=== PATIENT | female | born 1950 | race Caucasian/White ===

== ENCOUNTER → 2020-05-07 12:50 | Outpatient (BNVA) | payer OTHER, SELFPAY | PROVIDERS: PCP Physician Assistant; Referring Provider Physician Assistant; Visit Provider Physician Assistant | DX: Z76.89 Persons encountering health services in other specified circumstances (principal) ==

== ENCOUNTER → 2020-05-21 08:06 | Outpatient (BNVA) | payer OTHER, SELFPAY | PROVIDERS: Visit Provider Physician Assistant | DX: Z76.89 Persons encountering health services in other specified circumstances (principal) ==

== ENCOUNTER 2020-05-29 09:57 | Outpatient (REF) | payer OTHER, SELFPAY ==
--- NOTE | 2020-05-29 10:20 | XR_ITS ---
EXAMINATION: XR CHEST CLINICAL INFORMATION: Preprocedure examination COMPARISON: None TECHNIQUE: 2 views of the chest were obtained. FINDINGS: No significant abnormality is noted involving the heart, lungs, mediastinum, bony thorax or soft tissues. XR/XR chest 2V IMPRESSION: No acute disease.
[2020-05-29 10:24] LABS: MANUAL DIFF FLAG NO
[2020-05-29 10:37] LABS: Basophils Absolute Auto 0.1 X10*3/uL (0.0-0.2); Eosinophils Absolute Auto 0.3 X10*3/uL (0.0-0.4); Eosinophils Percent Auto 3.3 % (0-4); Estimated Average Glucose 111 mg/dL; Hematocrit 44.4 % (37-47); Hemoglobin 14.7 g/dl (12.0-16.0); Hemoglobin A1C 135.4402 umol/L; Hemoglobin A1c % 5.5 %; Imm Gran Abs Auto 0.03 X10*3/uL (0.00-0.03); Imm Gran Pct Auto 0.3 % (0.0-0.4); Lymphocytes Absolute Auto 1.9 X10*3/uL (1.2-4.9); Lymphocytes Percent Auto 20.9 % (20-40); Mean Corpuscular HGB Conc 33.1 g/dl (31.0-35.0); Mean Corpuscular Hemoglobin 28.1 pg (27.0-33.0); Mean Corpuscular Volume 84.9 fL (80-98); Mean Platelet Volume 10.1 fL (9.4-12.3); Monocytes Absolute Auto 0.6 X10*3/uL (0.1-1.2); Monocytes Percent Auto 6.6 % (2-11); Neutrophils Percent Auto 67.9 % (45-73); Platelet Count 319 X10*3/uL (160-400); Red Blood Count 5.23 X10*6/uL (4.20-5.50); Red Cell Distribution Width 13.1 % (11.0-16.0); White Blood Count 8.9 X10*3/uL (4.8-10.8)
[2020-05-29 10:50] LABS: Alanine Aminotransferase 27 U/L (0-31); Albumin Level 4.3 g/dL (3.5-5.0); Alkaline Phosphatase 69 U/L (39-117); Anion Gap 15 (12-20); Aspartate Amino Transferase 26 U/L (5-31); Bilirubin Total 0.6 mg/dL (0.0-1.0); Blood Urea Nitrogen 26 mg/dL (9-16); C Reactive Protein 0.44 mg/dL (< or = 0.50); Calcium 9.3 mg/dL (8.4-10.2); Carbon Dioxide 26 mmol/L (22-29); Chloride 105 mmol/L (96-108); Cholesterol 127 mg/dL; Estimated Glomerular Filt Rate > 60; Glucose Random 103 mg/dL (60-115); HDL Cholesterol 42 mg/dL; LDL Cholesterol Calculated 62 mg/dl; Potassium 4.2 mmol/l (3.3-5.1); Sodium 142 mmol/L (135-145); Total Protein 6.7 g/dL (6.5-8.0); Triglycerides 117 mg/dL
[2020-05-29 11:14] LABS: Ferritin 87 ng/mL (10-250); TSH reflex Free T4 1.54 mIU/mL (0.32-4.0)
[2020-05-29 11:45] LABS: Vitamin D 25-OH Total 54.8 ng/mL (>30)
[2020-05-31 04:31] LABS: Folate > 20.0 ng/mL (> or = 4.0); Vitamin B12 866 pg/mL (200-900)
[2020-05-31 20:09] LABS: Insulin Level Total 22.5 uIU/mL
[2020-06-01 05:53] LABS: Zinc 153 mcg/dL (60-130)
[2020-06-01 12:08] LABS: Calcium (PTHI) 9.5 mg/dL (8.6-10.4); PTHI 45 pg/mL (14-64)
[2020-06-03 01:52] LABS: Vitamin A 45 mcg/dL (38-98)
[2020-06-03 06:27] LABS: Vitamin B1 39 nmol/L (8-30)
== END 2020-05-29 09:58 | disposition home or self-care (01) ==
LOC: HO.LAB 09:57
PROVIDERS: PCP Nurse Practitioner Adult Health; Visit Provider Physician Assistant
DX: E66.01 Morbid (severe) obesity due to excess calories (principal); Z01.818 Encounter for other preprocedural examination
CPT/HCPCS: 36415; 71046; 80053; 80061; 82306; 82607; 82728; 82746; 83036; 83525; 83970; 84425; 84443; 84590; 84630; 85025; 86140

== ENCOUNTER 2020-06-11 14:55 | Outpatient (REF) | payer OTHER, SELFPAY ==
[2020-06-14 09:13] LABS: H Pylori Breath Test NOT DETECTED (NOT DETECTED)
== END 2020-06-11 14:56 | disposition home or self-care (01) ==
LOC: HO.LNP 14:55
PROVIDERS: Visit Provider Physician Assistant
DX: Z11.0 Encounter for screening for intestinal infectious diseases (principal); E66.01 Morbid (severe) obesity due to excess calories
CPT/HCPCS: 83013

== ENCOUNTER → 2020-06-23 08:19 | Outpatient (BNVA) | payer OTHER, SELFPAY | PROVIDERS: Visit Provider Dietitian, Registered | DX: Z76.89 Persons encountering health services in other specified circumstances (principal) ==

== ENCOUNTER → 2020-07-09 08:35 | Outpatient (BNVA) | payer OTHER, SELFPAY | PROVIDERS: Visit Provider Physician Assistant | DX: Z76.89 Persons encountering health services in other specified circumstances (principal) ==

== ENCOUNTER → 2020-07-23 08:53 | Outpatient (BNVA) | payer OTHER, SELFPAY | PROVIDERS: Visit Provider Physician Assistant ==

== ENCOUNTER → 2020-08-13 08:38 | Outpatient (BNVA) | payer OTHER, SELFPAY | PROVIDERS: Visit Provider Physician Assistant ==

== ENCOUNTER → 2020-08-18 08:09 | Outpatient (BNVA) | payer OTHER, SELFPAY | PROVIDERS: Visit Provider Dietitian, Registered ==

== ENCOUNTER → 2020-09-03 08:56 | Outpatient (BNVA) | payer OTHER, SELFPAY | PROVIDERS: Visit Provider Dietitian, Registered ==

== ENCOUNTER → 2020-09-06 13:34 | Outpatient (BNVA) | payer OTHER, SELFPAY | PROVIDERS: Visit Provider Surgery ==

== ENCOUNTER → 2020-09-08 09:52 | Outpatient (BNVA) | payer OTHER, SELFPAY | PROVIDERS: PCP Nurse Practitioner Adult Health; Visit Provider Surgery ==

== ENCOUNTER → 2020-09-16 15:56 | Outpatient (BNVA) | payer OTHER, SELFPAY | PROVIDERS: PCP Nurse Practitioner Adult Health; Visit Provider Physician Assistant ==

== ENCOUNTER 2020-09-21 09:26 | Outpatient (REF) | payer OTHER, SELFPAY ==
--- NOTE | ~2020-09-21 | FL_ITS ---
EXAMINATION: XR GI SERIES CLINICAL INFORMATION: Morbid/severe obesity due to excess calories. COMPARISON: None. TECHNIQUE: Routine upper GI air-contrast study was performed. FINDINGS: Following oral administration of thick barium and effervescent granules, there is normal propagation of bolus from the oral cavity through the pharynx and esophagus and into the stomach without any evidence of obstruction, narrowing or stricture. On placing patient supine and prone lying, the course, caliber and peristalsis of the stomach are normal. There is moderate gastroesophageal reflux. The mucosal pattern of the esophagus, stomach and the duodenum is normal. FLUOROSCOPY TIME: 2.0 minutes. DOSE AREA PRODUCT: 60.60 uGy-m2 (microgray-meter squared). FL/FL upper GI series IMPRESSION: Moderate gastroesophageal reflux without hiatal hernia.
--- NOTE | ~2020-09-21 | US_ITS ---
EXAMINATION: US COMPLETE ABDOMEN WITH LIVER ELASTOGRAPHY CLINICAL INFORMATION: Bariatric service evaluation, E66.01 COMPARISON: None. TECHNIQUE: Real-time imaging of the abdominal viscera. Noninvasive ultrasound liver fibrosis assessment is performed using Jolene ElastPQ point quantification shear wave elastography (pSWE) with a C5-2 MHz transducer. Multiple elastography samples are obtained. FINDINGS: PANCREAS: The visualized pancreas is normal in size and contour and echogenicity. Portion pancreatic tail obscured by bowel gas and not completely imaged. There is no ductal dilatation. ABDOMINAL AORTA: The proximal, middle, and distal aortic segments are normal in caliber. INFERIOR VENA CAVA: Visualized portions are normal. LIVER: The liver is normal in size and smooth in contour. There is mild increased hepatic parenchymal echogenicity suggesting mild hepatic steatosis. There is no focal hepatic parenchymal lesion or intrahepatic ductal dilatation. The right lobe measures 15.9 cm in length. The left lobe measures 14.1 cm in length. Portal flow is towards the liver (hepatopetal). Shear wave liver elastography median stiffness is 1.58 m/s (reference: normal median stiffness is 1.3 m/s or less). IQR/median stiffness to assess sampling precision is 0.41 (reference: good quality data set is IQR/median stiffness of 0.15 or less). GALLBLADDER: Normal. The gallbladder is physiologically distended without evidence of stones, sludge, polyps, wall thickening or pericholecystic fluid. COMMON BILE DUCT: Normal in caliber measuring 0.4 cm in diameter. RIGHT KIDNEY: Normal. No hydronephrosis. No renal calculi or focal parenchymal lesions. The kidney measures 11.7 cm in maximum dimension. LEFT KIDNEY: Normal. No hydronephrosis. No renal calculi or focal parenchymal lesions. The kidney measures 11.4 cm in maximum dimension. SPLEEN: Normal. The spleen measures 10.4 cm in maximum dimension. FREE FLUID: None. US/US abdomen comp w elastography IMPRESSION: 1. Mild hepatic steatosis. No focal parenchymal lesion. 2. No gallstone or ductal dilatation. 3. Liver elastography: Although measurements appear to rule out compensated advanced chronic liver disease, there is statistical variability of the sampling which decreases accuracy. REFERENCE: Society of Radiologists in Ultrasound Liver Stiffness Thresholds (2020): LIVER STIFFNESS THRESHOLDS: *Liver Stiffness equal or less than 1.3 m/s: High probability of being normal. *Liver Stiffness less than 1.7 m/s: In the absence of other known clinical signs, rules out compensated advanced chronic liver disease. *Liver Stiffness 1.7-2.1 m/s: Suggestive of compensated advanced chronic liver disease but need further test for confirmation. *Liver Stiffness over 2.1 m/s: Rules in compensated advanced chronic liver disease. *Liver Stiffness over 2.4 m/s: Suggestive of clinically significant portal hypertension. QUALITY OF DATA SET: *IQR/Median value equal or less than 0.15 implies a quality data set. *IQR/Median value over 0.15 implies a poor quality data set. SIGNIFICANT CHANGE FROM PRIOR EXAM: Significant change if liver stiffness measurement is 10% or greater from prior exam. OTHER CONSIDERATIONS: The stage of liver fibrosis may be overestimated in the setting of acute hepatitis, liver inflammation, elevated liver function tests, hepatic vascular congestion, obstructive cholestasis, non-fasting state, and infiltrative diseases such as amyloidosis and lymphoma. In some patients with NAFLD, the liver stiffness thresholds for compensated advanced chronic liver disease may be lower. In causes other than viral hepatitis and NAFLD, liver stiffness thresholds are not well established.
--- NOTE | 2020-09-21 10:55 | ECG_ITS ---
Test Reason : MORBID OBESITY Blood Pressure : / mmHG Vent. Rate : 093 BPM Atrial Rate : 093 BPM P-R Int : 166 ms QRS Dur : 060 ms QT Int : 336 ms P-R-T Axes : 034 -34 011 degrees QTc Int : 417 ms Normal sinus rhythm Left axis deviation Low voltage QRS cannot exclude old Inferior infarct , age undetermined - can be normal variant Abnormal ECG No previous ECGs available Referred By: Ken Leon Electronically Signed By:ANITA BRITT
== END 2020-09-21 09:27 | disposition home or self-care (01) ==
LOC: HO.US 09:26
PROVIDERS: PCP Nurse Practitioner Adult Health; Visit Provider Surgery
DX: Z01.818 Encounter for other preprocedural examination (principal); E66.01 Morbid (severe) obesity due to excess calories; K21.9 Gastro-esophageal reflux disease without esophagitis; E78.5 Hyperlipidemia, unspecified; G47.30 Sleep apnea, unspecified
CPT/HCPCS: 74240; 76705; 76981; 93005

== ENCOUNTER → 2020-10-01 15:59 | Outpatient (BNVA) | payer OTHER, SELFPAY | PROVIDERS: PCP Nurse Practitioner Adult Health; Visit Provider Physician Assistant ==

== ENCOUNTER → 2020-10-04 08:11 | Outpatient (BNVA) | payer OTHER, SELFPAY | PROVIDERS: PCP Nurse Practitioner Adult Health; Visit Provider Surgery ==

== ENCOUNTER → 2020-10-20 08:38 | Outpatient (BNVA) | payer OTHER, SELFPAY | PROVIDERS: PCP Nurse Practitioner Adult Health; Visit Provider Surgery ==

== ENCOUNTER → 2020-10-22 13:26 | Outpatient (BNVA) | payer OTHER, MEDICARE, SELFPAY | PROVIDERS: PCP Nurse Practitioner Adult Health; Visit Provider Physician Assistant ==

== ENCOUNTER 2020-10-28 07:05 | Inpatient (IN) | payer OTHER, MEDICARE, SELFPAY ==
[2020-10-22 10:54] LABS: MANUAL DIFF FLAG NO
[2020-10-22 10:56] LABS: Basophils Absolute Auto 0.1 X10*3/uL (0.0-0.2); Basophils Percent Auto 0.7 % (0-2); Eosinophils Absolute Auto 0.3 X10*3/uL (0.0-0.4); Eosinophils Percent Auto 3.1 % (0-4); Hematocrit 45.2 % (37-47); Imm Gran Abs Auto 0.03 X10*3/uL (0.00-0.03); Imm Gran Pct Auto 0.3 % (0.0-0.4); Lymphocytes Absolute Auto 2.1 X10*3/uL (1.2-4.9); Lymphocytes Percent Auto 21.2 % (20-40); Mean Corpuscular HGB Conc 33.2 g/dl (31.0-35.0); Mean Corpuscular Hemoglobin 27.9 pg (27.0-33.0); Mean Corpuscular Volume 84.2 fL (80-98); Mean Platelet Volume 10.5 fL (9.4-12.3); Monocytes Absolute Auto 0.6 X10*3/uL (0.1-1.2); Monocytes Percent Auto 6.4 % (2-11); Neutrophils Absolute Auto 6.8 X10*3/uL (2.0-8.3); Neutrophils Percent Auto 68.3 % (45-73); Platelet Count 288 X10*3/uL (160-400); Red Blood Count 5.37 X10*6/uL (4.20-5.50); Red Cell Distribution Width 13.6 % (11.0-16.0)
[2020-10-22 11:01] LABS: INTERNATIONAL NORM RATIO 1.1 (0.9-1.1); Prothrombin Time 12.5 SEC (10.8-13.0)
[2020-10-22 11:04] LABS: Partial Thromboplastin Time 33.1 SEC (24.1-38.0)
[2020-10-22 11:24] LABS: Alanine Aminotransferase 21 U/L (0-31); Albumin Level 4.4 g/dL (3.5-5.0); Alkaline Phosphatase 68 U/L (39-117); Anion Gap 15 (12-20); Aspartate Amino Transferase 22 U/L (5-31); Bilirubin Total 0.9 mg/dL (0.0-1.0); Blood Urea Nitrogen 24 mg/dL (9-16); C Reactive Protein 0.18 mg/dL (< or = 0.50); Calcium 10.1 mg/dL (8.4-10.2); Carbon Dioxide 27 mmol/L (22-29); Chloride 105 mmol/L (96-108); Cholesterol 134 mg/dL; Estimated Glomerular Filt Rate > 60; Glucose Random 101 mg/dL (60-115); HDL Cholesterol 47 mg/dL; LDL Cholesterol Calculated 63 mg/dl; Potassium 3.8 mmol/L (3.3-5.1); Sodium 143 mmol/L (135-145); Total Protein 6.8 g/dL (6.5-8.0); Triglycerides 122 mg/dL
[2020-10-22 11:44] VITALS: BMI 47.2
[2020-10-22 11:47] LABS: TSH reflex Free T4 1.11 uIU/mL (0.32-4.0)
[2020-10-22 12:01] LABS: Estimated Average Glucose 103 mg/dL; Hemoglobin A1c % 5.2 %
[2020-10-23 09:52] LABS: Insulin Level Total 15.2 uIU/mL
--- NOTE | 2020-10-27 20:54 | MHC.SHP ---
Pre-Procedural Eval Section A The patient is an INPATIENT: Yes The History & Physical has been completed within 30 days and I have reviewed it.: Yes Section B Chief Complaint: obesity Details of Present Illness: obesity Relevant Family History (Specify if Yes): No Present Medications: see Short Stay Collaborative assessment Medical History: No relevant PMH History of Previous Operations: No relevant previous surgery Allergies: Allergies Allergy/AdvReac Type Severity Reaction Status Date / Time hylan G-F 20 [From Synvisc] Allergy localized Verified 10/22/20 11:43 swelling phenylephrine AdvReac Agitated Verified 10/22/20 12:09 [From PediaCare Decongestant (PE)] Review of Systems Sugical H&P ROS: Negative: Constitution, Cardiovascular, Respiratory, Neurological, Psychiatric, Hem-Onc, Allergic/Immunologic, Gastrointestinal, Genitourinary, Musculoskeletal, Integumentary, Endocrine and Eyes/Ears/Nose/Throat Exam Surgical H&P Exam: Normal: HEENT, Normal: Heart, Normal: Lungs, Normal: Extremities, Normal: Abdomen, Normal: Skin and Normal: Neurological Plan Diagnosis/Plan: Unchanged I have reviewed the history and physical and performed a pertinent physical examination on my patient. No changes have occurred unless specified.
[2020-10-28] VITALS (12 sets, daily range): BP systolic 126–178; BP diastolic 62–82; PULSE 65–106; RESP 16–19; TEMP 35.7–36.9; O2SAT 93–98
[2020-10-28 08:13] LABS: Glucose, Whole Blood 100 mg/dL (60-115)
[2020-10-28 08:36] LABS: IDNOW Serial# 9DD0AD1C
[2020-10-28 08:37] LABS: COVID-19 Test Negative (Negative)
--- NOTE | 2020-10-28 08:39 | HO.ANESPROP2 ---
[facility] Active Problems Active Problems: All Active Problems (Updated 10/22/20 @ 12:10 by Jewels Miller) Hypertension (Acute) Arthritis (Acute) Sleep apnea (Acute) GERD (gastroesophageal reflux disease) (Acute) Hyperlipidemia (Acute) Pre-existing insulin dependent diabetes mellitus (Acute) Severe obesity (BMI >= 40) (Acute) Pre-op evaluation (Acute) Adjustment disorder, unspecified (Acute) Hyperlipidemia (Acute) Morbid obesity (Acute) Urinary incontinence (Acute) Fibromyalgia (Acute) Past Medical History Medical History Arthritis Fibromyalgia GERD (gastroesophageal reflux disease) HTN (hypertension) Hyperlipidemia Morbid obesity On beta gissel at home MARÍA on CPAP Pre-diabetes Urinary incontinence Family History Family History Father Heart disease Mother Heart disease Alzheimer disease Sister Arthritis Kidney stones Sleep apnea HTN (hypertension) Sister No problems noted. Surgical History Surgical History History of arthroscopic surgery of elbow History of total bilateral knee replacement Hx of colonoscopy Social History Social History Are you a primary lpn care manager to a significant other at home: No Do you presently have visiting nurse or other home services: No Alcohol intake: current Alcohol intake frequency: holidays/special occasions only Smoking Status: Former smoker Smoking Quit Date: 15 years ago Use of substances other than those prescribed or required for medical reasons: No Have you been hit, kicked, punched, or otherwise hurt by someone within the past year? If so, by whom?: No Advance Directives: No Advance Directives Information Provided: No Advance Directives on File: No Recently lost weight without trying: No Meds Allergies Allergy/AdvReac Type Severity Reaction Status Date / Time hylan G-F 20 [From Synvisc] Allergy localized Verified 10/22/20 11:43 swelling phenylephrine AdvReac Agitated Verified 10/22/20 12:09 [From PediaCare Decongestant (PE)] Home Medications Medication Instructions Recorded Confirmed Last Taken Type atorvastatin 10 mg tablet 10 mg PO DAILY 05/07/20 10/22/20 Unknown History esomeprazole magnesium 20 mg 20 mg PO DAILY 05/07/20 10/22/20 Unknown History capsule,delayed release hydrochlorothiazide 25 mg tablet 25 mg PO DAILY 05/07/20 10/22/20 Unknown History hydrocodone 5 mg-acetaminophen 300 1 tab PO BID PRN 05/07/20 10/28/20 Unknown History mg tablet lisinopril 10 mg tablet 10 mg PO DAILY 05/07/20 10/22/20 Unknown History magnesium 250 mg tablet 250 mg PO DAILY 05/07/20 10/22/20 10/21/20 History meloxicam 15 mg tablet 15 mg PO DAILY 05/07/20 10/22/20 10/21/20 History metoprolol succinate 50 mg 50 mg PO DAILY 05/07/20 10/22/20 Unknown History tablet,extended release 24 hr mirabegron 25 mg tablet,extended 25 mg PO DAILY 05/07/20 10/22/20 Unknown History release 24 hr multivitamin 1 tab PO DAILY 05/07/20 10/22/20 10/21/20 History omega-3 fatty acids 1,000 mg 1,000 mg PO DAILY 05/07/20 10/22/20 10/21/20 History capsule pregabalin 75 mg capsule 75 mg PO BID 05/07/20 10/28/20 Unknown History vitamin B complex 1 tab PO DAILY 05/07/20 10/22/20 10/21/20 History hydrocortisone 1 % lotion 1 appl TOPICAL BID PRN 08/13/20 10/22/20 Unknown History metformin 500 mg PO QPM 10/22/20 10/22/20 Unknown History ondansetron HCl [Zofran] 4 mg PO Q12H PRN 10/28/20 10/22/20 Unknown History Exam Exam Date and Time: October 28, 2020 0839 Height,Weight and Vital Signs: Height 4 ft 10.5 in Weight 104.326 kg Last Vital Signs Temp 97.2 F 10/28/20 08:06 Pulse 106 H 10/28/20 08:06 Resp 18 10/28/20 08:06 BP 126/77 10/28/20 08:06 Pulse Ox 96 10/28/20 08:06 Pertinent Lab Results Pertinent Lab Results: Laboratory Tests 10/22/20 10/22/20 10/22/20 10:03 10:03 10:03 WBC 10.0 RBC 5.37 Hgb 15.0 Hct 45.2 MCV 84.2 MCH 27.9 MCHC 33.2 RDW 13.6 Plt Count 288 MPV 10.5 Immature Gran % (Auto) 0.3 Neut % (Auto) 68.3 Lymph % (Auto) 21.2 Childress % (Auto) 6.4 Eos % (Auto) 3.1 Baso % (Auto) 0.7 Lymph # (Auto) 2.1 Childress # (Auto) 0.6 Eos # (Auto) 0.3 Baso # (Auto) 0.1 Abs Immat Gran (auto) 0.03 Absolute Neuts (auto) 6.8 Absolute Nucleated RBC 0.000 Nucleated RBC % (auto) 0.0 PT 12.5 INR 1.1 APTT 33.1 Sodium 143 Potassium 3.8 Chloride 105 Carbon Dioxide 27 Anion Gap 15 BUN 24 H Creatinine 0.69 Estim Creat Clear Calc TNP Estimated GFR > 60 POC Glucose Random Glucose 101 Estimat Average Glucose Hemoglobin A1c % Total Insulin Calcium 10.1 D Total Bilirubin 0.9 AST 22 ALT 21 Alkaline Phosphatase 68 C-Reactive Protein 0.18 Total Protein 6.8 Albumin 4.4 Triglycerides 122 Cholesterol 134 LDL Cholesterol, Calc 63 HDL Cholesterol 47 TSH 1.11 COVID-19 (NAVI) COVID-[facility] Blood Type Antibody Screen 10/22/20 10/22/20 10/22/20 10:03 10:03 10:03 WBC RBC Hgb Hct MCV MCH MCHC RDW Plt Count MPV Immature Gran % (Auto) Neut % (Auto) Lymph % (Auto) Childress % (Auto) Eos % (Auto) Baso % (Auto) Lymph # (Auto) Childress # (Auto) Eos # (Auto) Baso # (Auto) Abs Immat Gran (auto) Absolute Neuts (auto) Absolute Nucleated RBC Nucleated RBC % (auto) PT INR APTT Sodium Potassium Chloride Carbon Dioxide Anion Gap BUN Creatinine Estim Creat Clear Calc Estimated GFR POC Glucose Random Glucose Estimat Average Glucose 103 Hemoglobin A1c % 5.2 Total Insulin 15.2 Calcium Total Bilirubin AST ALT Alkaline Phosphatase C-Reactive Protein Total Protein Albumin Triglycerides Cholesterol LDL Cholesterol, Calc HDL Cholesterol TSH COVID-19 (NAVI) COVID-19 [facility] Blood Type B Positive Antibody Screen NEGATIVE 10/28/20 10/28/20 07:58 08:09 WBC RBC Hgb Hct MCV MCH MCHC RDW Plt Count MPV Immature Gran % (Auto) Neut % (Auto) Lymph % (Auto) Childress % (Auto) Eos % (Auto) Baso % (Auto) Lymph # (Auto) Childress # (Auto) Eos # (Auto) Baso # (Auto) Abs Immat Gran (auto) Absolute Neuts (auto) Absolute Nucleated RBC Nucleated RBC % (auto) PT INR APTT Sodium Potassium Chloride Carbon Dioxide Anion Gap BUN Creatinine Estim Creat Clear Calc Estimated GFR POC Glucose 100 Random Glucose Estimat Average Glucose Hemoglobin A1c % Total Insulin Calcium Total Bilirubin AST ALT Alkaline Phosphatase C-Reactive Protein Total Protein Albumin Triglycerides Cholesterol LDL Cholesterol, Calc HDL Cholesterol TSH COVID-19 (NAVI) Negative COVID-19 Clin Com See Note Blood Type Antibody Screen Airway Mallampati Class: II TM Dist: >3cm Loose/Missing/Broken Teeth: No Heart: RRR Lungs: CTA Assessment and Plan Assessment Anesthesia Assessment: Anesthesia Plan Discussed Final Anesthetic Review NPO: Yes ASA Class: III Final Preanesthetic Review: Meds/Allgs Chart Reviewed, Consent Obtained/Reviewed and Anes Risks/Benef Reviewed Patient Risk: Intermediate Procedure Risk: Intermediate Anesthetic Plan Anesthetic Plan: GA Disposition: Standard PACU
[2020-10-28] MEDS: Lactated Ringers 1,000 ML 999 ML IV (08:41)
--- NOTE | 2020-10-28 09:55 | P.BOP_ITS ---
Brief Operative Note Date of Service: 10/28/20 Pre-op diagnosis: Morbid obesity and comorbidities Post-op diagnosis: same (and abdominal adhesions) Procedure: INITIAL PATIENT BMI ON PRESENTATION AT OUR OFFICE: 52.9 kg/m2 LAST BMI BEFORE SURGERY: 46.9 kg/m2 COMORBIDITIES: umbilical hernia, GERD, hyperlipidemia, hypertension, non-insulin dependent diabetes, DJD, stress incontinence, liver steatosis, liver fibrosis The patient participated in an intensive weekly lifestyle intervention and exercise program during which the patient has lost between the initial office visit and the last preoperative visit 30.3 lbs, or 11.55% of initial actual body weight. The patient met the BMI-criteria for bariatric surgery based on the BMI on initial presentation. The patient should not be penalized for achieving such weight loss because it is not sustainable long-term without surgical intervention and it was achieved in preparation for bariatric surgery under my direction and based on my published research ([email or web address] and [email or web address]/[email or web address]) that a 10% preoperative weight loss improves long-term weight loss after surgery and reduces perioperative complications. Insurance carriers such as [facility] have endorsed my recommendations and have included in their policies criteria to include a 10% preoperative weight loss requirement. PROCEDURE: Esophago-gastroscopy, laparoscopic lysis of adhesions, laparoscopic sleeve gastrectomy and laparoscopic gastropexy INDICATIONS: This is a 53 year-old female who was electively scheduled for laparoscopic, possibly open sleeve gastrectomy. The risks and complications of the procedure were discussed with the patient in advance, particularly the possibility of ; pulmonary embolism; staple line leak; bleeding; GERD; cardiac, pulmonary, or renal complications; as well as long-term problems such as insufficient weight loss, vitamin deficiency, strictures, or ulcers. The patient understood all the risks, and was in agreement to proceed with surgery. DESCRIPTION OF PROCEDURE: After informed consent was obtained from the patient, the patient was given preoperative antibiotics, and was transferred to the operating room. After successful induction of general anesthesia, pneumatic compressive devices were placed on both lower extremities. An upper endoscopy was performed next. The oropharynx and esophagus appeared to be within normal limits. There was no diaphragmatic hernia present consistent with the findings of the preoperative upper GI. The stomach was entered. Then after all fluid and air were suctioned and the stomach was fully decompressed, the scope was withdrawn and secured in the mid esophagus. The patient was then prepped and draped in the usual sterile manner, and abdominal access was established at the right upper quadrant with the Danial technique. A 12 mm blunt port was inserted, and the abdomen was insufflated with CO2 to a pressure of 15 mmHg. Under direct visualization, additional ports were placed, specifically two 5 mm Versi-step ports to the left upper quadrant, and a 5 mm Versi-Step port to the right upper quadrant. 1% lidocaine plan was used to infiltrate all port sites as well as all fascia defects. Following that, the patient was placed in a steep reverse Trendelenburg position. An additional 5 mm port was placed to the right flank for the Mediflex retractor that was used to retract the left lobe of the liver. The gastro-esophageal fat pad was opened with the ultrasonic device (Thunderbeat, Olympus) and the anterior esophagus and hiatus were exposed. The angle of His was opened with the ultrasonic device the fundus of the stomach from any diaphragmatic and splenic attachments. I then opened the gastrocolic ligament between the transverse colon and the greater curvature of the stomach with the ultrasonic device to enter the lesser sac and facilitate the ligation of the short gastric vessels. I started at a mid-point along the greater curvature and using the Thunderbeat, all short gastric vessels were divided all the way to the angle of His until the left eduardo was completely dissected at its entirety. I then divided the gastro-colic ligament distally to a distance of about 3-4 cm proximal to the esophagus. There were extensive congenital adhesions between the pancreas and posterior gastric wall. Those were lysed completely with the ultrasonic device. Adhesiolysis took approximately 45 min to complete. The stomach was then divided transversely with pne Endo ERIC-45 purple loads, two ERIC-45 orange loads and four ERIC-60 articulating orange loads using the AEON stapler and loads. Every effort was made that the gastric sleeve had a tubular shape and an even caliber throughout. Once the sleeve resection was completed, t he staple line of the gastric sleeve was reinforced with Hemoclips. The resected stomach was retrieved without difficulty from the Danial port. A gastropexy was then performed in order to prevent postoperative GERD and partial gastric volvulus. Several interrupted 2.0 Surgidac sutures were placed between the sleeve's staple line and the previously divided greater omentum and gastro-colic ligament using the Endo-Stitch device. An upper endoscopy was performed. There was no narrowing at the GE junction. The scope was easily advanced all the way to the pylorus which was clearly visualized. There was no narrowing anywhere and the sleeve's caliber was even throughout. The sleeve's staple line was inspected and there was no evidence of ischemia, bleeding or dehiscence. At that point the gastroscope was withdrawn from the patient?s mouth while we were decompressing the bowel and the stomach from any remaining air. I looked into the lesser sac to see how the sleeve was situating and it was situating well. There was no bleeding from the staple line, spleen, or short gastric vessels. The Mediflex retractor was removed, and the undersurface of the liver was inspected and there was no bleeding. The patient was placed in supine position. I closed the fascial defect of the 12 mm port site with a figure of eight #1 Polysorb suture. Then 100 cc 0.25 % Marcaine plain with 10 mg of Dexamethasone were used to infiltrate the fascial closure as well as all skin incisions. At this point, the abdomen was deflated, all ports were removed under direct vision, and no bleeding was noted from any of the port sites. The skin incisions were irrigated with saline and were closed with 4-0 absorbable monofilament sutures. Steri-Strips and OpSites were used to cover all incisions. The patient was extubated and was transferred in stable condition to the recovery room for further care. I was present and performed all holt parts of the procedure. Tahira Gaston was the sampler first. There were no residents to assist with this case. José Leon MD, PhD, FACS Surgeon: Ken Leon MD Anesthesia: GETA, local and other (TAP block) Intervention Specialist: Stefanie Gaston Estimated blood loss (mL): 10 IV fluids (mL): 2,500 Urine output (mL): 0 (No Brar to record) Pathology: other (Stomach) Condition: stable Disposition: PACU
--- NOTE | 2020-10-28 09:58 | PM.PNGS ---
Subjective Subjective Date of Service: 10/29/20 Interval history: Patient has mild incisional pain but was able to ambulate and use the incentive spirometer. She is tolerating phase 1 bariatric diet. Physical Exam Vital Signs: Vital Signs: Last Vital Signs Temp 97.2 F 10/28/20 08:06 Pulse 106 H 10/28/20 08:06 Resp 18 10/28/20 08:06 BP 126/77 10/28/20 08:06 Pulse Ox 96 10/28/20 08:06 Body Mass Index 47.2 GI: Inspection: Yes normal to inspection and Yes incision (clean, dry and intact) Extrem: Right lower extremity: normal to inspection (no calf tenderness) Left lower extremity: normal to inspection (no calf tenderness) Progress Note: A&P Assessment and plan (1) Morbid obesity: Status: Acute (2) S/P laparoscopic sleeve gastrectomy: Status: Acute Assessment and Plan: 70 year old female was admitted 10/28/20 with morbid obesity and comorbidities. Problem 1: s/p laparoscopic sleeve gastrectomy, gastropexy and lysis of adhesions Status: Doing well Plan: Check am labs, If OK, will begin phase 1 bariatric diet. (3) Sleep apnea: Problem details: uses CPAP Status: Acute (4) GERD (gastroesophageal reflux disease): Status: Acute (5) Hyperlipidemia: Status: Acute (6) Pre-existing insulin dependent diabetes mellitus: Status: Acute (7) Hyperlipidemia: Status: Acute (8) Urinary incontinence: Status: Acute (9) Arthritis: Status: Acute (10) Fibromyalgia: Status: Acute (11) Umbilical hernia: Status: Acute (12) Steatosis, liver: Status: Acute (13) Liver fibrosis: Status: Acute Time Spent With Patient Time: Total time spent is greater than 50% in coordination of care (as documented) at patient's floor/unit and/or counseling patient: Time with patient: less than 15 minutes
--- NOTE | 2020-10-28 12:37 | P.DS_ITS ---
DS: Providers Provider Date of Service: 10/29/20 Date of admission: 10/28/20 07:05 Primary care physician: Alvina Ridley NP DS: Diagnosis Discharge Diagnosis (1) Morbid obesity: Status: Acute (2) S/P laparoscopic sleeve gastrectomy: Status: Acute (3) Sleep apnea: Status: Acute Problem details: uses CPAP (4) GERD (gastroesophageal reflux disease): Status: Acute (5) Hyperlipidemia: Status: Acute (6) Pre-existing insulin dependent diabetes mellitus: Status: Acute (7) Hyperlipidemia: Status: Acute (8) Urinary incontinence: Status: Acute (9) Arthritis: Status: Acute (10) Fibromyalgia: Status: Acute (11) Umbilical hernia: Status: Acute (12) Steatosis, liver: Status: Acute (13) Liver fibrosis: Status: Acute DS: Medications Discharge Medications Home Medications: Home Medications Medication Instructions Recorded Confirmed atorvastatin 10 mg tablet 10 mg PO DAILY 05/07/20 10/22/20 esomeprazole magnesium 20 mg 20 mg PO DAILY 05/07/20 10/22/20 capsule,delayed release hydrochlorothiazide 25 mg tablet 25 mg PO DAILY 05/07/20 10/22/20 hydrocodone 5 mg-acetaminophen 300 1 tab PO BID PRN 05/07/20 10/28/20 mg tablet lisinopril 10 mg tablet 10 mg PO DAILY 05/07/20 10/22/20 magnesium 250 mg tablet 250 mg PO DAILY 05/07/20 10/22/20 meloxicam 15 mg tablet 15 mg PO DAILY 05/07/20 10/22/20 metoprolol succinate 50 mg 50 mg PO DAILY 05/07/20 10/22/20 tablet,extended release 24 hr mirabegron 25 mg tablet,extended 25 mg PO DAILY 05/07/20 10/22/20 release 24 hr multivitamin 1 tab PO DAILY 05/07/20 10/22/20 omega-3 fatty acids 1,000 mg 1,000 mg PO DAILY 05/07/20 10/22/20 capsule pregabalin 75 mg capsule 75 mg PO BID 05/07/20 10/28/20 vitamin B complex 1 tab PO DAILY 05/07/20 10/22/20 hydrocortisone 1 % lotion 1 appl TOPICAL BID PRN 08/13/20 10/22/20 metformin 500 mg PO QPM 10/22/20 10/22/20 ondansetron HCl [Zofran] 4 mg PO Q12H PRN 10/28/20 10/22/20 Previous Rx's Medication Instructions Recorded sucralfate 100 mg/mL oral 10 ml PO BID #400 ml 10/20/20 suspension DS: Summary Time Spent with Patient Time attestation: ADMITTING DIAGNOSIS: morbid obesity, HTN, DM, hyperlipidemia, MARÍA, fibromyalgia, GERD DISCHARGE DIAGNOSIS: same, s/p laparoscopic sleeve gastrectomy PAST SURGICAL HISTORY: elbow PROCEDURE: upper endoscopy, laparoscopic sleeve gastrectomy DISCHARGE SUMMARY: History of Present Illness: The patient is a 70 year-old woman with a BMI of 52.9 kg/m2 and associated co- morbidities as described above. The patient had extensive work-up,lost 30.3 lbs preoperatively and was electively scheduled for laparoscopic, possible open sleeve gastrectomy and gastropexy. Risks and complications of the surgery were discussed with the patient in advance, particularly the possibility of , pulmonary embolism, anastomotic leak, bleeding, bowel injury, GERD, cardiac, renal or pulmonary complications. The patient understood all the risks and was in agreement with the surgical plan. Hospital Course: The patient underwent an uneventful laparoscopic sleeve gastrectomy with gastropexy on the day of admission. Postoperatively, the patient was transferred to the surgical floor. The patient was on IV Acetaminophen and IV dilaudid for pain control. Patient was started on bariatric phase 1 diet POD #0. On postoperative day one, the patient was feeling well without nausea, vomiting, fevers, or tachycardia. The patient had some mild incisional pain. The abdomen was soft. On the morning of postoperative day one, the patient was continued on 1 ounce of water or ice every half hour. During the first day, the patient did fairly well, having some incisional pain, but able to ambulate adequately and to tolerate liquids well. Since the patient is doing well, we decided that the patient was ready to be discharged. The patient was given instructions to follow-up with me next week and to call my office for any fever over 101, persistent abdominal pain, nausea, vomiting, GERD, symptoms of DVT such as calf tenderness, or leg swelling, or pulmonary embolism such as chest pain or shortness of breath. The patient was also instructed to drink 40-60 ounces of liquids per day using the 1-ounce cups. The patient was given prescription for Tylenol for pain, Zofran prn for nausea, and pantoprazole and carafate. The patient was encouraged to ambulate and use the incentive spirometer. The patient was allowed to shower, but no baths, and encouraged to stay active at home. All of these instructions were given to the patient personally. All questions were answered and the patient understood all instructions, the instructions were also given to the patient in print. Total time spent providing and/or coordinating discharge services: 15 Discharge coordination time: Less than 30 minutes Physical Exam Vital Signs: Vital Signs: Last Vital Signs Temp 98.4 F 10/28/20 12:32 Pulse 87 10/28/20 12:32 Resp 16 10/28/20 12:32 BP 145/72 H 10/28/20 12:32 Pulse Ox 98 10/28/20 12:32 Body Mass Index 47.2 DS: Data Data Completed and Pending Pending studies at discharge: Pending at discharge 10/28/20 12:13 Surgical [PTH] Routine Labs on day of discharge: Laboratory Results - last 24 hr 10/28/20 10/28/20 07:58 08:09 POC Glucose 100 COVID-19 (NAVI) Negative COVID-19 Clin Com See Note Discharge Plan Discharge Anticipated Discharge Date/Time: 10/29/20 11:33 Patient Disposition: Home, Self-Care Discharge Diagnosis: POD # 1 s/p sleeve gastrectomy Referrals: Alvina Ridley, [facility] [Primary Care Provider] - 1 Week Discharge Medications: Continued ondansetron HCl [Zofran] 4 mg tablet 4 mg PO Q12H PRN (Reason: Nausea And Vomiting) RF: 0 hydrocortisone [Cortisone (hydrocortisone)] 1 % lotion 1 appl topical BID PRN (Reason: Skin Irritation) RF: 0 omega-3 fatty acids [Fish Oil Concentrate] 1,000 mg capsule 1,000 mg PO DAILY RF: 0 metoprolol succinate 50 mg tablet extended release 24 hr 50 mg PO DAILY RF: 0 lisinopril 10 mg tablet 10 mg PO DAILY RF: 0 magnesium 250 mg tablet 250 mg PO DAILY RF: 0 atorvastatin 10 mg tablet 10 mg PO DAILY RF: 0 pregabalin [Lyrica] 75 mg capsule 75 mg PO BID RF: 0 Myrbetriq 25 mg tablet extended release 24 hr 25 mg PO DAILY RF: 0 hydrocodone-acetaminophen 5-300 mg tablet 1 tab PO BID PRN (Reason: Pain) RF: 0 sucralfate 100 mg/mL suspension 10 ml PO BID Qty: 400 RF: 2 Held metformin 500 mg Tablet Extended Release 24 Hr 500 mg PO QPM RF: 0 Hold Instructions: Discuss when to restart with Dr Leon hydrochlorothiazide 25 mg tablet 25 mg PO DAILY RF: 0 Hold Instructions: Discuss restart with Dr Leon Discontinued multivitamin Tablet 1 tab PO DAILY RF: 0 vitamin B complex [B Complex-Vitamin B12] Tablet 1 tab PO DAILY RF: 0 meloxicam 15 mg tablet 15 mg PO DAILY RF: 0 esomeprazole magnesium 20 mg capsule,delayed release(DR/EC) 20 mg PO DAILY RF: 0 Discharge Orders: Discharge Order (Routine); Ordered 10/29/20 Ordered By: Ken Leon Diet: other Activity on Discharge: No heavy lifting Stand Alone Forms: Patient Portal Discharge page Activity Restrictions/Additional Instructions: No tub baths, sex or returning to work until discussed at first post op appointment. No exercise, alcohol, tobacco or illegal drug use. Continue to use incentive spirometer hourly while awake. Walk in home for 5- 10 minutes every 2 hours during the first week. Continue phase 1 diet today and start phase 2 diet tomorrow morning. Follow all instructions in the bariatric handbook and call with any questions. Care Plan Goals: weight [place] Health Concerns: morbid obesity Plan of Treatment: see discharge instructions Assessment: naomi, s/p sleeve gastrectomy Discharge Date/Time: 10/29/20 11:39
[2020-10-28 13:32] LABS: Hematocrit 45.6 % (37-47); Hemoglobin 14.6 g/dl (12.0-16.0)
[2020-10-28 13:52] LABS: Anion Gap 19 (12-20); Blood Urea Nitrogen 15 mg/dL (9-16); Calcium 9.2 mg/dL (8.4-10.2); Carbon Dioxide 21 mmol/L (22-29); Chloride 104 mmol/L (96-108); Creatinine Clr Calc Pharmacy 76.1; Estimated Glomerular Filt Rate > 60; Glucose Random 126 mg/dL (60-115); Potassium 3.9 mmol/L (3.3-5.1); Sodium 140 mmol/L (135-145)
[2020-10-28] MEDS: Famotidine/PF 20 MG/2 ML VIAL IVPUSH ×2 (13:53→21:34)
[2020-10-28] MEDS: ondansetron HCL 4 MG/2 ML VIAL IVPUSH ×2 (13:53→21:34)
[2020-10-28] MEDS: Lactated Ringers 1,000 ML 125 ML IVCONT (13:58)
[2020-10-28 14:56] LABS: Hematocrit 43.4 % (37-47); Hemoglobin 14.2 g/dl (12.0-16.0)
[2020-10-28 15:16] LABS: Anion Gap 20 (12-20); Blood Urea Nitrogen 14 mg/dL (9-16); Calcium 8.5 mg/dL (8.4-10.2); Carbon Dioxide 15 mmol/L (22-29); Chloride 107 mmol/L (96-108); Creatinine Clr Calc Pharmacy 72.2; Estimated Glomerular Filt Rate > 60; Glucose Random 133 mg/dL (60-115); Potassium 4.4 mmol/L (3.3-5.1); Sodium 138 mmol/L (135-145)
[2020-10-28] MEDS: ceFAZolin Sodium/Dextrose,Iso 2 GM/50 ML PIGGYBACK IV (16:16)
[2020-10-28] MEDS: HYDROmorphone HCl 0.5 MG/0.5 ML SYRINGE 0.25 MG IVPUSH (20:25)
[2020-10-28] MEDS: Pregabalin 75 MG CAPSULE PO (21:34)
[2020-10-29] VITALS: BP 136/76; PULSE 87; RESP 18; TEMP 36.8; O2SAT 93
[2020-10-29] MEDS: Lactated Ringers 1,000 ML 125 ML IVCONT (00:15)
[2020-10-29 03:10] VITALS: BP 119/62; PULSE 90; RESP 17; TEMP 35.9; O2SAT 92
[2020-10-29] MEDS: ondansetron HCL 4 MG/2 ML VIAL IVPUSH (04:44)
[2020-10-29 05:03] LABS: MANUAL DIFF FLAG NO
[2020-10-29 05:05] LABS: Basophils Percent Auto 0.1 % (0-2); Hematocrit 39.8 % (37-47); Hemoglobin 13.2 g/dl (12.0-16.0); Imm Gran Abs Auto 0.07 X10*3/uL (0.00-0.03); Imm Gran Pct Auto 0.7 % (0.0-0.4); Lymphocytes Percent Auto 10.4 % (20-40); Mean Corpuscular HGB Conc 33.2 g/dl (31.0-35.0); Mean Corpuscular Hemoglobin 28.4 pg (27.0-33.0); Mean Corpuscular Volume 85.8 fL (80-98); Mean Platelet Volume 10.1 fL (9.4-12.3); Monocytes Absolute Auto 0.5 X10*3/uL (0.1-1.2); Monocytes Percent Auto 4.9 % (2-11); Neutrophils Absolute Auto 8.2 X10*3/uL (2.0-8.3); Neutrophils Percent Auto 83.9 % (45-73); Platelet Count 250 X10*3/uL (160-400); Red Blood Count 4.64 X10*6/uL (4.20-5.50); Red Cell Distribution Width 13.7 % (11.0-16.0); White Blood Count 9.8 X10*3/uL (4.8-10.8)
[2020-10-29 05:34] LABS: Anion Gap 18 (12-20); Blood Urea Nitrogen 12 mg/dL (9-16); Calcium 8.7 mg/dL (8.4-10.2); Carbon Dioxide 19 mmol/L (22-29); Chloride 107 mmol/L (96-108); Creatinine Clr Calc Pharmacy 81.6; Estimated Glomerular Filt Rate > 60; Glucose Random 123 mg/dL (60-115); Potassium 3.8 mmol/L (3.3-5.1); Sodium 140 mmol/L (135-145)
[2020-10-29 07:09] VITALS: BP 129/76; PULSE 87; RESP 18; TEMP 36.1; O2SAT 92
[2020-10-29] MEDS: Famotidine/PF 20 MG/2 ML VIAL IVPUSH (08:57)
[2020-10-29] MEDS: Pregabalin 75 MG CAPSULE PO (08:58)
[2020-10-29] MEDS: Metoprolol Succinate ER 50 MG TAB.ER.24H PO (08:58)
[2020-10-29] MEDS: Mirabegron 25 MG TAB.ER.24H PO (08:58)
[2020-10-29] MEDS: lisinopriL 10 MG TABLET PO (08:58)
--- NOTE | 2020-10-29 09:44 | MHC.CM.PN ---
Addendum entered by Amy Bear RN 10/29/20 09:53: PT GIVEN EDUCATIONAL INFO AND BLANK HCP, PT DECLINES TO COMPLETE DURING THIS HOSPITAL STAY. Original Note: IMM 10/29, EMR REVIEWED, PT ADMITTED S/P GASTRIC SLEEVE, CM MET W/PT WHO REPORTS SHE LIVES ALONE, IS INDEPENDENT W/CARE, HAS A CPAP AND CANE (WHICH SHE DOESN'T USE) FOR DME,REPORTS SHE HAS A RECLINER TO SLEEP N IF NECESSARY, NO HOME SERVICES, PT DOES NOT ANTICIPATE ANY ADDITIONAL NEEDS AFTER D/C, PT'S SISTER IS AVAILABLE FOR ANY ASSISTANCE PT MAY NEED. D/C PLAN HOME SELF-CARE, SISTER TO JOSEANAIS PCP: NICKI ECKERT
--- NOTE | 2020-10-29 14:08 | HO.POSTANES ---
Post Anesthesia Evaluation Post Anesthesia Evaluation Vital Signs: Vital Signs Temp Pulse Resp BP Pulse Ox 10/29/20 07:09 97.0 F 87 18 129/76 92 10/29/20 03:10 96.7 F L 90 17 119/62 92 Anesthesia: General Endotracheal-GETA Mental Status: Awake Pain Control: Satisfactory Nausea/Vomiting: None Hydration: Adequate Anesthesia-Related Issues: No Anes. Related Issues
== END 2020-10-29 11:39 | disposition home or self-care (01) | DRG 621 ==
LOC: HO.SSSA 12:37 → HO.S3 12:40
PROVIDERS: Physician Assistant; Admitting Provider Surgery; PCP Nurse Practitioner Adult Health; Visit Provider Surgery
PROC: 0DB64Z3 Excision of Stomach, Percutaneous Endoscopic Approach, Vertical (ICD-10-PCS; CPT 43845; principal; 2020-10-28 09:20)
DX: E66.01 Morbid (severe) obesity due to excess calories (principal); K66.0 Peritoneal adhesions (postprocedural) (postinfection); K21.9 Gastro-esophageal reflux disease without esophagitis; E78.5 Hyperlipidemia, unspecified; I10 Essential (primary) hypertension; N39.3 Stress incontinence (female) (male); K76.0 Fatty (change of) liver, not elsewhere classified; Z68.42 Body mass index [BMI] 45.0-49.9, adult; G47.30 Sleep apnea, unspecified; M79.7 Fibromyalgia; Z99.89 Dependence on other enabling machines and devices; K74.00 Hepatic fibrosis, unspecified; Z20.822 Contact with and (suspected) exposure to COVID-19; Z79.84 Long term (current) use of oral hypoglycemic drugs; Z79.899 Other long term (current) drug therapy
CPT/HCPCS: 36415; 80048; 80053; 80061; 82947; 83036; 83525; 84443; 85014; 85018; 85025; 85610; 85730; 86140; 86850; 86900; 86901; 87635; 88307; 88341; 88342; 88360; 99024; A4649; J0131; J0690; J1100; J1170; J2250; J2405; J3010

== ENCOUNTER → 2020-11-05 08:26 | Outpatient (BNVA) | payer OTHER, SELFPAY | PROVIDERS: PCP Nurse Practitioner Adult Health; Visit Provider Surgery ==

== ENCOUNTER → 2020-12-06 07:45 | Outpatient (BNVA) | payer OTHER, SELFPAY | PROVIDERS: PCP Nurse Practitioner Adult Health; Visit Provider Surgery ==

== ENCOUNTER → 2021-01-07 07:52 | Outpatient (BNVA) | payer OTHER, SELFPAY | PROVIDERS: PCP Nurse Practitioner Adult Health; Visit Provider Surgery ==

== ENCOUNTER → 2021-03-11 15:59 | Outpatient (BNVA) | payer OTHER, SELFPAY | PROVIDERS: PCP Nurse Practitioner Adult Health; Visit Provider Physician Assistant Surgical ==

== ENCOUNTER 2021-04-09 09:02 | Outpatient (REF) | payer OTHER, SELFPAY ==
[2021-04-09 09:12] LABS: MANUAL DIFF FLAG NO
[2021-04-09 09:24] LABS: Basophils Percent Auto 0.4 % (0-2); Eosinophils Absolute Auto 0.2 X10*3/uL (0.0-0.4); Eosinophils Percent Auto 1.9 % (0-4); Hematocrit 43.6 % (37-47); Imm Gran Abs Auto 0.03 X10*3/uL (0.00-0.03); Imm Gran Pct Auto 0.3 % (0.0-0.4); Lymphocytes Absolute Auto 1.9 X10*3/uL (1.2-4.9); Lymphocytes Percent Auto 20.4 % (20-40); Mean Corpuscular HGB Conc 34.4 g/dl (31.0-35.0); Mean Corpuscular Volume 84.2 fL (80-98); Mean Platelet Volume 9.7 fL (9.4-12.3); Monocytes Absolute Auto 0.8 X10*3/uL (0.1-1.2); Monocytes Percent Auto 8.6 % (2-11); Neutrophils Absolute Auto 6.4 X10*3/uL (2.0-8.3); Neutrophils Percent Auto 68.4 % (45-73); Platelet Count 282 X10*3/uL (160-400); Red Blood Count 5.18 X10*6/uL (4.20-5.50); Red Cell Distribution Width 13.7 % (11.0-16.0); White Blood Count 9.3 X10*3/uL (4.8-10.8)
[2021-04-09 09:37] LABS: Estimated Average Glucose 103 mg/dL; Hemoglobin A1c % 5.2 %
[2021-04-09 09:59] LABS: Alanine Aminotransferase 14 U/L (0-31); Albumin Level 4.3 g/dL (3.5-5.0); Alkaline Phosphatase 71 U/L (39-117); Anion Gap 13 (12-20); Aspartate Amino Transferase 19 U/L (5-31); Bilirubin Total 0.9 mg/dL (0.0-1.0); Blood Urea Nitrogen 17 mg/dL (9-16); C Reactive Protein 0.19 mg/dL (< or = 0.50); Calcium 9.7 mg/dL (8.4-10.2); Carbon Dioxide 25 mmol/L (22-29); Chloride 107 mmol/L (96-108); Cholesterol 135 mg/dL; Estimated Glomerular Filt Rate > 60; Glucose Random 100 mg/dL (60-115); HDL Cholesterol 49 mg/dL; Iron 83 mcg/dL (30-160); LDL Cholesterol Calculated 69 mg/dl; Percent Iron Saturation 27 % (15-50); Potassium 3.9 mmol/L (3.3-5.1); Sodium 141 mmol/L (135-145); Total Iron Binding Capacity 302 mcg/dL (228-428); Total Protein 6.5 g/dL (6.5-8.0); Triglycerides 85 mg/dL; Unsaturated Iron Binding 219 ug/dL
[2021-04-09 10:19] LABS: Ferritin 136 ng/mL (10-250); TSH reflex Free T4 1.55 uIU/mL (0.32-4.0); Vitamin D 25-OH Total 53.7 ng/mL (>30)
[2021-04-11 08:07] LABS: Vitamin B12 779 pg/mL (200-900)
[2021-04-12 16:01] LABS: Calcium (PTHI) 9.6 mg/dL (8.6-10.4); PTHI 42 pg/mL (14-64)
[2021-04-13 06:26] LABS: Zinc 80 mcg/dL (60-130)
[2021-04-14 20:42] LABS: Vitamin A 44 mcg/dL (38-98)
[2021-04-15 12:45] LABS: Vitamin B1 14 nmol/L (8-30)
== END 2021-04-09 09:03 | disposition home or self-care (01) ==
LOC: HO.LAB 09:02
PROVIDERS: PCP Nurse Practitioner Adult Health; Visit Provider Physician Assistant Surgical
DX: Z13.89 Encounter for screening for other disorder (principal)
CPT/HCPCS: 36415; 80053; 80061; 82306; 82607; 82728; 82746; 83036; 83540; 83970; 84425; 84443; 84590; 84630; 85025; 86140

== ENCOUNTER → 2021-04-22 15:17 | Outpatient (BNVA) | payer OTHER, SELFPAY | PROVIDERS: PCP Nurse Practitioner Adult Health; Visit Provider Physician Assistant Surgical ==

== ENCOUNTER → 2021-09-16 15:18 | Outpatient (BNVA) | payer OTHER, SELFPAY | PROVIDERS: PCP Nurse Practitioner Adult Health; Visit Provider Physician Assistant Surgical | DX: Z13.89 Encounter for screening for other disorder (principal) ==